=== PATIENT | male | born 1945 | race Caucasian/White ===

== ENCOUNTER 2018-01-02 07:58 | Day surgery (SDC) | payer OTHER ==
[~2018-01-02] VITALS: Ht 180.3 cm; Wt 102.1 kg
[~2018-01-02 07:58] MED LIST: ALLOPURINOL300 MG PO; ASPIRIN EC325 MG PO; ASPIRIN81 MG PO; BUPROPION XL150 MG PO; CHLORTHALIDONE25 MG PO; CLOPIDOGREL75 MG PO; COZAAR100 MG PO; FISH OIL 1,0001 EAC1 PO; MELOXICAM15 MG PO; NORCO 5-325 TA1 EACH PO; NORVASC5 MG PO; ONE-A-DAY MAXI1 EACH PO; PRAVACHOL40 MG PO; VITAMIN B-12500 MC3 PO
[2018-01-02] MEDS ORDERED: ULTRAM50 MG PO (08:24)
--- NOTE | 2018-01-02 10:19 | NUR ---
01/02/18 1019 Chandrika Lawrence 3446 PT ARRIVED IN PACU SLEEPY. OXYGEN DECREASED TO 2L VIA NC WITH SATS 98%. ABD SOFT. 1010 OXYGEN DC'D. SATS 92% ON RA. NO C/O'S.
--- NOTE | 2018-01-02 10:44 | OR ---
[facility] [address] [place], [place] [address] Signed DATE OF OPERATION: 01/02/2018 SURGEON: Robert Acevedo MD PREOPERATIVE DIAGNOSES: 1. Personal history of 83 polyps in 2015. 2. Diverticulosis. 3. Father with a history of colon cancer in his 70s. POSTOPERATIVE DIAGNOSES: 1. A 4 mm polyp polyps in proximal right colon, 90 cm and 25 cm. 2. Minimal sigmoid diverticulosis. 3. Jyqzfaz-vb-tpywvzwp internal hemorrhoids. PROCEDURE: Colonoscopy with hot biopsy. ESTIMATED BLOOD LOSS: None. INDICATIONS: Gwen is a 72-year-old gentleman, asked to see me for followup colonoscopy. He explained that his father had colon cancer diagnosed in his 70s. Gwen had his colonoscopy in 2014 and he had 83 polyps removed through the [facility] in [facility]. He is also known to have some diverticulosis. He said in the meantime, he seems to be doing fine. He has no lower GI complaints. In the office, I gave him a pamphlet on colonoscopy and we discussed the nature of the test along with the risks including, but not limited to gas bloating, crampy abdominal pain, bleeding, perforation, requiring surgery, and missed diagnosis. We also discussed the need for IV conscious sedation. He had expressed understanding and wished to proceed. PROCEDURE NOTE: Gwen was taken into our endoscopy suite and placed in the left lateral decubitus position. He was given divided doses of 7 mg of Versed and 150 mcg of fentanyl. A digital rectal exam was performed and he has some induration to the prostate as expected. The adult colonoscope was introduced and advanced all around into the cecum under direct visualization of camera without difficulty. His prep was moderate. The scope was slowly withdrawn. We took pictures throughout for photodocumentation. The above-mentioned polyps were removed with the help of hot biopsy forceps. We did also see numerous polypectomy scars from his previous colonoscopy. We saw few diverticula in Electronically Signed By: ROBERT ACEVEDO MD 01/02/18 1044 PATIENT NAME: GWEN CAMPOS OPERATIVE REPORT DATE OF : 47 REPORT #: [id number] PHYSICIAN: ROBERT ACEVEDO MD PCP: EDGAR TREVINO MD REPORT IS CONFIDENTIAL AND NOT TO BE RELEASED WITHOUT AUTHORIZATION [facility] [address] [place], [place] [address] Signed the sigmoid colon. They were relatively small in size few in number, and scattered about. The scope was then retroflexed in the rectum and he does have some toarefw-kk-yalfsvuu internal hemorrhoid tissue. After this, the gas was suctioned out and colonoscope removed. Gwen tolerated the procedure quite well. RECOMMENDATIONS: I will see Gwen back in my office in 7 to 14 days to review his results. I suspect he will stay on the 5-year colonoscopy rotation. Robert Acevedo MD ALB/URIELL /[id number] cc: MD Nigel Lainez MD Copies: ROBERT ACEVEDO MD, MICAIAH MATTHEW MD ~ Electronically Signed By: ROBERT ACEVEDO MD 01/02/18 1044 PATIENT NAME: GWEN CAMPOS OPERATIVE REPORT DATE OF : 47 REPORT #: [id number] PHYSICIAN: ROBERT ACEVEDO MD PCP: EDGAR TREVINO MD REPORT IS CONFIDENTIAL AND NOT TO BE RELEASED WITHOUT AUTHORIZATION
== END 2018-01-02 10:55 | disposition home or self-care (01) ==
LOC: DS 07:58 → OPS 07:58 → DS 09:45 → OPS 10:55
PROVIDERS: Colon & Rectal Surgery
PROC: 0DBE8ZZ Excision of Large Intestine, Via Natural or Artificial Opening Endoscopic (ICD-10-PCS; 2018-01-02)
PROC: 0DBK8ZZ Excision of Ascending Colon, Via Natural or Artificial Opening Endoscopic (ICD-10-PCS; principal; 2018-01-02 09:45)
DX: Z12.11 Encounter for screening for malignant neoplasm of colon (principal); D12.6 Benign neoplasm of colon, unspecified; D17.5 Benign lipomatous neoplasm of intra-abdominal organs; K63.5 Polyp of colon; K57.30 Diverticulosis of large intestine without perforation or abscess without bleeding; K64.8 Other hemorrhoids; I10 Essential (primary) hypertension; E78.5 Hyperlipidemia, unspecified; E55.9 Vitamin D deficiency, unspecified; M19.90 Unspecified osteoarthritis, unspecified site; M10.9 Gout, unspecified; D64.9 Anemia, unspecified; F17.210 Nicotine dependence, cigarettes, uncomplicated; Z88.5 Allergy status to narcotic agent; Z86.010 Personal history of colon polyps; Z83.71 Family history of colonic polyps; Z98.890 Other specified postprocedural states; Z88.8 Allergy status to other drugs, medicaments and biological substances; Z79.02 Long term (current) use of antithrombotics/antiplatelets; Z79.899 Other long term (current) drug therapy
CPT/HCPCS: 99153; G0500; J2250; J3010; J7120

== ENCOUNTER 2018-11-24 14:16 | Emergency (ER) | payer MEDICARE ==
[~2018-11-24] VITALS: Ht 172.7 cm; Wt 102.1 kg
--- OUTSIDE RECORDS SUMMARY | ~2018-11-24 | XMS | Encounter Summary ---
Demographics + + + | Address | [address] | | | [place] [address] | + + + | Home Phone | | + + + | Preferred Language | Unknown | + + + | Marital Status | Single | + + + | Restorationism Affiliation | ADV | + + + | Race | White | + + + | Ethnic Group | Not or | + + + Author + + + | Author | [facility] | + + + | Organization | [facility] | + + + | Address | Unknown | + + + | Phone | Unavailable | + + + Support + + +---------+ + | Name | Relationship | Address | Phone | + + +---------+ + | Cristi Soriano | ECON | Unknown | | + + +---------+ + Care Team Providers + +------+ + | Care Red Cap Name | Role | Phone | + +------+ + | Nigel Crystal MD | PCP | | + +------+ + Reason for Visit AUTH/CERT +--------+--------+ + + + + | Status | Reason | Specialty | Diagnoses / | Referred By | Referred To | | | | | Procedures | Contact | Contact | +--------+--------+ + + + + | | | | | | | +--------+--------+ + + + + Encounter Details +--------+---------+ + + + | Date | Type | Department | Care Team | Description | +--------+---------+ + + + | 02/08/ | Surgery | [facility] | Madison Hensley MD | [facility] | | 2016 | | [address] | [address] | VITRECTOMY, ENDO | | | | [address] [address] | [address] [place], [place] | LASER, 20% SF6 GAS | | | | [facility], | [address] | RIGHT *23G* | | | | [place] [address] | [phone] | | | | | | | | +--------+---------+ + + + Social History + + + +--------+------+ | Tobacco Use | Types | Packs/Day | Years | Date | | | | | Used | | + + + +--------+------+ | Current Some Day | Cigarettes | 0.5 | 50 | | | Smoker | | | | | + + + +--------+------+ + + | Comments: 1/2 a pack a week | + + + + +---------+ + | Alcohol Use | Drinks/Week | oz/Week | Comments | + + +---------+ + | Yes | 14 Cans of beer | 8.4 | 2-24 oz cans before | | | | | bed | + + +---------+ + + + + | Sex Assigned at | Date Recorded | | | | + + + | Not on file | | + + + + + + + | Job Start Date | Occupation | Industry | + + + + | Not on file | Not on file | Not on file | + + + + + + + + | Travel History | Travel Start | Travel End | + + + + + + | No recent travel history available. | + + documented as of this encounter Last Filed Vital Signs + + + + + | Vital Sign | Reading | Time Taken | Comments | + + + + + | Blood Pressure | 118/70 | 02/09/2016 5:00 PM | | | | | PDT | | + + + + + | Pulse | 56 | 02/09/2016 5:00 PM | | | | | PDT | | + + + + + | Temperature | 36.8 C (98.2 F) | 02/09/2016 4:30 PM | | | | | PDT | | + + + + + | Respiratory Rate | 14 | 02/09/2016 5:00 PM | | | | | PDT | | + + + + + | Oxygen Saturation | 100% | 02/09/2016 5:00 PM | | | | | PDT | | + + + + + | Inhaled Oxygen | - | - | | | Concentration | | | | + + + + + | Weight | 93.6 kg (206 lb 6.4 | 02/09/2016 11:41 AM | | | | oz) | PDT | | + + + + + | Height | 175.3 cm (5' 9") | 02/09/2016 11:41 AM | | | | | PDT | | + + + + + | Body Mass Index | 30.48 | 02/09/2016 11:41 AM | | | | | PDT | | + + + + + documented in this encounter Discharge Instructions Instructions Sapna Savage RN - 02/09/2016Home Care after Retinal Detachment and Vitrect albino Surgery Do not drive, drink alcoholic beverages, sign legal documents or make major decisions durin g the next 24 hours. Leave the bandage & shield on your eye, clean and dry. Your doctor andra thibodeaux remove it the day after surgery. Resume your previous diet and take your medications as u sual. Eye care ? Your eye patch will be removed in the doctor s office the day after surgery ? Keep it dry ? Please bring all recently prescribed Eye medication to the appointment ? Please do not o rub your operated eye o lift heavy objects o engage in any strenuous exercise or activity for two weeks Special positioning may be required to enhance the surgical repair of your eye. Specific in structions will be given and length of time varies with the type of repair you received. If you have a gas bubble in your eye: Do not sleep flat on your back (this causes the gas bubble to move forward and puts unwante d pressure against your lens and the front of your eye). If a gas bubble is in your eye, thi s could expand as you increase elevation resulting in pain or vision loss; should you experi ence headache, nausea or vision loss you must descend immediately. Please discuss with your physician what elevation is safe to travel to. Air travel is contraindicated with a gas bubb le in your eye and could result in permanent vision loss and blindness. POSITIONING What to expect It is normal after surgery to experience: ? Dull ache / headache ? Slight redness of the eye ? Swelling / discoloration around the eye ? Scratchy sensation ? Droopy eyelid Call your Doctor if ? You experience pain that is not relieved by prescribed medications ? You notice decreased vision How to reach your Doctor ? Call (Day or Night) ? Return appointment date: ? Time: documented in this encounter Medications at Time of Discharge + + + +---------+--------+ + | Medication | Sig | Dispensed | Refills | Start | End Date | | | | | | Date | | + + + +---------+--------+ + | allopurinol 100 mg | Take 100 mg by mouth | | 0 | | | | oral tablet | once daily. | | | | | + + + +---------+--------+ + | amLODIPine 5 mg | Take 5 mg by mouth | | 0 | | | | oral tablet | once daily. | | | | | + + + +---------+--------+ + | clopidogrel 75 mg | Take 75 mg by mouth | | 0 | | | | oral tablet | once daily. | | | | | + + + +---------+--------+ + | | Take 1 tablet by | | 0 | | | | HYDROcodone-acetamin | mouth every four | | | | | | ophen 5-325 mg oral | hours as needed. | | | | | | tablet | | | | | | + + + +---------+--------+ + | POTASSIUM ORAL | Take 100 mg by mouth | | 0 | | | | | once daily. | | | | | | | Losartan Potassium | | | | | + + + +---------+--------+ + | pravastatin 40 mg | Take 40 mg by mouth | | 0 | | | | oral tablet | once daily. | | | | | + + + +---------+--------+ + | traMADol 50 mg | Take 50 mg by mouth | | 0 | | | | oral tablet | two times daily. | | | | | + + + +---------+--------+ + documented as of this encounter Plan of Treatment Not on filedocumented as of this encounter Procedures + +--------+ + + + | Procedure Name | Priori | Date/Time | Associated Diagnosis | Comments | | | ty | | | | + +--------+ + + + | PROCEDURE NOTE | Routin | 02/13/2016 | | Results for this | | | e | 5:50 PM | | procedure are in the | | | | PDT | | results section. 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 male with macula-off | | | detachment in the right eye. He now undergoes surgery. Surgical | | | Narrative: The patient was brought into the operating theatre and was | | | placed in supine position. After sufficient sedation was given, a | | | 50:50 mix of 2% xylocaine and 0.75% bupivacaine was injected into | | | the peribulbar space using an Costello needle. The area around the | | | right eye was then prepped and draped in usual sterile manner for | | | ophthalmic surgery. A lid speculum was placed and the operating | | | microscope was brought over the eye. The eye was set up for standard | | | 23-gauge vitrectomy with the infusion trocar in the infratemporal | | | quadrant and instrument trocars in the supratemporal and supranasal | | | quadrants. The retina was detached from approximately 9 to 7 | | | o'clock, sparing the interotemporal quadrant. There was shallow | | | fluid in the macula. Using light pipe, vitrector, and the BIOM | | | viewing system, vitrectomy was performed. During vitrectomy a | | | posterior capsule defect was created with the cutter. Using the | | | vitrector on suction, posterior detachment was induced. The vitreous | | | was trimmed in all clock hours in systematic fashion. Scleral | | | depression was used to look for breaks in the periphery. A small | | | superonasal flap tear was visualized and vitreous applying traction | | | to the flap was cut as well as removal of all vitreous traction to | | | this flap tear. Vitreous shaving was performed in all quadrants. | | | No additional breaks were seen. The superotemporal peripheral retina | | | appeared atrophic. Endodiathermy was used to nandini the | | | break. Perflurocarbon was injected into the vitreous cavity to | | | flatten the retina. Schlieren was seen to emerge from the | | | break. Air-fluid exchange was performed with the extrusion | | | cannula draining through the superonasal break using the air-PFC | | | sandwich technique. The retina was flattened nearly completely | | | with minimal subretinal fluid. An endolaser probe was used to | | | perform photocoagulation around the break and other areas of | | | thinning peripherally. 7-0 Polysorb sutures were placed in the | | | sclerotomy wounds. As the eye was being closed, the air was | | | exchanged for 100 mL of 20% SF6 gas. Normal tactile intraocular | | | pressure was confirmed. Decadron and Zinacef were given as | | | subconjunctival injections. Atropine, a gauze patch, and a metal | | | shield were placed over the eye. The patient was moved to the | | | recovery area in satisfactory condition. I certify that the | | | services of which payment is claimed were medically necessary and | | | that no qualified resident was available to perform the | | | services. I further understand that these services are subject to | | | post-payment review by the Medicare carrier. Madison Hensley MD PhD | | | | | + + + documented in this encounter Visit Diagnoses + + | Diagnosis | + + | Retinal detachment, right Unspecified retinal detachment | + + documented in this encounter Administered Medications + +--------+ +--------+------+--------+ | Medication Order | MAR | Action | Dose | Rate | Site | | | Action | Date | | | | + +--------+ +--------+------+--------+ | atropine 1 % ophthalmic drops | Given | 02/09/20 | 1 drop | | Right | | INTRAPROCEDURE PRN, Starting Radha | | 16 3:07 | | | Eye | | 02/09/16 at 1507, Until Radha | | PM PDT | | | | | 02/09/16 at 1633 | | | | | | + +--------+ +--------+------+--------+ +---+---+ | | | +---+---+ + +-------+ +-------+---+--------+ | balanced salt (BSS) ophthalmic | Given | 02/09/20 | 15 mL | | Right | | irrigation INTRAPROCEDURE PRN, | | 16 3:07 | | | Eye | | Starting Radha 02/09/16 at 1507, | | PM PDT | | | | | Until Radha 02/09/16 at 1633 | | | | | | + +-------+ +-------+---+--------+ +---+---+ | | | +---+---+ + +-------+ +--------+---+--------+ | cefuroxime (ZINACEF) injection | Given | 02/09/20 | 125 mg | | Right | | INTRAPROCEDURE PRN, Starting Radha | | 16 3:07 | | | Eye | | 02/09/16 at 1507, Until Radha | | PM PDT | | | | | 02/09/16 at 1633 | | | | | | + +-------+ +--------+---+--------+ +---+---+ | | | +---+---+ + +-------+ +--------+---+---+ | cyclopentolate 1%-PHENYLEPHrine | Given | 02/09/20 | 1 drop | | | | 2.5%-tropicamide 0.25% | | 16 11:53 | | | | | (SUPERDROPS) ophthalmic drops 1 | | AM PDT | | | | | drop 1 drop, Right Eye, EVERY 5 | | | | | | | MINUTES NEEDED, 2 doses, | | | | | | | Starting Radha 02/09/16 at 1136, | | | | | | | Until Radha 02/09/16 at 2336, | | | | | | | pre-procedure dilation | | | | | | + +-------+ +--------+---+---+ +---+---+ | | | +---+---+ + +-------+ +-------+---+--------+ | dexamethasone (DECADRON) | Given | 02/09/20 | 10 mg | | Right | | injection INTRAPROCEDURE PRN, | | 16 3:08 | | | Eye | | Starting Radha 02/09/16 at 1508, | | PM PDT | | | | | Until Radha 02/09/16 at 1633 | | | | | | + +-------+ +-------+---+--------+ +---+---+ | | | +---+---+ + +-------+ + +---+--------+ | Dilating Solution: BSS Plain | Given | 02/09/20 | 1 Bottle | | Right | | 500 mL - 0.5 mL EPINEPHrine | | 16 3:08 | | | Eye | | (1:1,000) INTRAPROCEDURE PRN, | | PM PDT | | | | | Starting Radha 02/09/16 at 1508, | | | | | | | Until Radha 02/09/16 at 1633 | | | | | | + +-------+ + +---+--------+ +---+---+ | | | +---+---+ + +---------+ +---+---+---+ | lactated ringers IV 10 mL/hr, | New Bag | 02/09/20 | | | | | intravenous, CONTINUOUS, Starting | | 16 2:32 | | | | | Radha 02/09/16 at 1215, Until Radha | | PM PDT | | | | | 02/09/16 at 2336 | | | | | | + +---------+ +---+---+---+ +---------+ + + +---+ | New Bag | 02/09/20 | 10 mL/hr | 10 mL/hr | | | | 16 11:53 | | | | | | AM PDT | | | | +---------+ + + +---+ +---+---+ | | | +---+---+ + +-------+ +------+---+--------+ | Local with hyaluronidase: | Given | 02/09/20 | 6 mL | | Right | | lidocaine 2% - bupivacaine 0.75% | | 16 3:08 | | | Eye | | - hyaluronidase 150 units/mL 1 mL | | PM PDT | | | | | 1:10:10) INTRAPROCEDURE PRN, | | | | | | | Starting Radha 02/09/16 at 1508, | | | | | | | Until Radha 02/09/16 at 1633 | | | | | | + +-------+ +------+---+--------+ +---+---+ | | | +---+---+ + +-------+ +--------+---+--------+ | proparacaine (OPHTHAINE) 0.5 % | Given | 02/09/20 | 1 drop | | Right | | ophthalmic drops INTRAPROCEDURE | | 16 3:09 | | | Eye | | PRN, Starting Radha 02/09/16 at | | PM PDT | | | | | 1509, Until Radha 02/09/16 at 1633 | | | | | | + +-------+ +--------+---+--------+ +---+---+ | | | +---+---+ + +-------+ +---------+---+--------+ | tetracaine 0.5 % ophthalmic | Given | 02/09/20 | 2 drops | | Right | | drops INTRAPROCEDURE PRN, | | 16 3:09 | | | Eye | | Starting Radha 02/09/16 at 1509, | | PM PDT | | | | | Until Radha 02/09/16 at 1633 | | | | | | + +-------+ +---------+---+--------+ +---+---+ | | | +---+---+ documented in this encounter
--- OUTSIDE RECORDS SUMMARY | ~2018-11-24 | XMS | Clinical Summary ---
Demographics + + + | Address | [address] | | | [place] [address] | + + + | Home Phone | | + + + | Preferred Language | Unknown | + + + | Marital Status | Single | + + + | Gnosticism Affiliation | ADV | + + + | Race | White | + + + | Ethnic Group | Not or | + + + Author + + + | Author | [facility] | + + + | Organization | [facility] | + + + | Address | Unknown | + + + | Phone | Unavailable | + + + Support + + +---------+ + | Name | Relationship | Address | Phone | + + +---------+ + | Cristi Soriano | ECON | Unknown | | + + +---------+ + Care Team Providers + +------+ + | Care Tattoo Designer Name | Role | Phone | + +------+ + PP | Unavailable | + +------+ + Source Comments [facility] is fully live on both [facility] and [facility] InPatient[facility] Allergies No Known Allergies Medications + + + +---------+------+------+-------+ | Medication | Sig | Dispensed | Refills | Star | End | Statu | | | | | | t | Date | s | | | | | | Date | | | + + + +---------+------+------+-------+ | pravastatin 40 mg | Take 40 mg by mouth | | 0 | | | Activ | | oral tablet | once daily. | | | | | e | + + + +---------+------+------+-------+ | amLODIPine 5 mg | Take 5 mg by mouth | | 0 | | | Activ | | oral tablet | once daily. | | | | | e | + + + +---------+------+------+-------+ | traMADol 50 mg | Take 50 mg by mouth | | 0 | | | Activ | | oral tablet | two times daily. | | | | | e | + + + +---------+------+------+-------+ | allopurinol 100 mg | Take 100 mg by mouth | | 0 | | | Activ | | oral tablet | once daily. | | | | | e | + + + +---------+------+------+-------+ | clopidogrel 75 mg | Take 75 mg by mouth | | 0 | | | Activ | | oral tablet | once daily. | | | | | e | + + + +---------+------+------+-------+ | POTASSIUM ORAL | Take 100 mg by mouth | | 0 | | | Activ | | | once daily. | | | | | e | | | Losartan Potassium | | | | | | + + + +---------+------+------+-------+ | | Take 1 tablet by | | 0 | | | Activ | | HYDROcodone-acetamin | mouth every four | | | | | e | | ophen 5-325 mg oral | hours as needed. | | | | | | | tablet | | | | | | | + + + +---------+------+------+-------+ | prednisoLONE | Instill 1 drop into | | 0 | | | Activ | | acetate 1 % | the right eye four | | | | | e | | ophthalmic | times daily. | | | | | | | drops,suspension | | | | | | | + + + +---------+------+------+-------+ | atropine 1 % | Instill 1 drop into | | 0 | | | Activ | | ophthalmic drops | the right eye two | | | | | e | | | times daily. | | | | | | + + + +---------+------+------+-------+ | | Take 1 tablet by | 10 | 0 | 08/ | | Activ | | HYDROcodone-acetamin | mouth every four | tablet | | 01/01 | | e | | ophen (VICODIN) | hours as needed. | | | 16 | | | | 5-300 mg oral tablet | | | | | | | + + + +---------+------+------+-------+ Active Problems + + + | Problem | Noted Date | + + + | Retinal detachment, rhegmatogenous, right eye | 03/09/2016 | + + + Family History + + +------+ + | Medical History | Relation | Name | Comments | + + +------+ + | Additional Family | Father | | Colon cancer | | History | | | | + + +------+ + | Glasses | Father | | | + + +------+ + | Glasses | Mother | | | + + +------+ + | Strabismus | Mother | | | + + +------+ + | Amblyopia | Neg Hx | | | + + +------+ + | Blindness | Neg Hx | | | + + +------+ + | Cataracts | Neg Hx | | | + + +------+ + | Diabetes | Neg Hx | | | + + +------+ + | Glaucoma | Neg Hx | | | + + +------+ + | Macular degeneration | Neg Hx | | | + + +------+ + | Retinal detachment | Neg Hx | | | + + +------+ + + +------+--------+ + | Relation | Name | Status | Comments | + +------+--------+ + | Father | | | | + +------+--------+ + | Mother | | | | + +------+--------+ + Social History + + + +--------+------+ | Tobacco Use | Types | Packs/Day | Years | Date | | | | | Used | | + + + +--------+------+ | Current Some Day | Cigarettes | 0.5 | 50 | | | Smoker | | | | | + + + +--------+------+ + + | Tobacco Cessation: Ready to Quit: Yes | | Comments: 1/2 a pack a week [...] recent travel history available. | + + Last Filed Vital Signs + + + [...] | | + + + + + Plan of Treatment + + + + + | Health Maintenance | Due Date | Last Done | Comments | + + + + + | Pneumococcal (Adult) | | | | | (1 of 2 - PCV13) | 1 | | | + + + + + | Influenza (Flu) | | | | | vaccination (Season | 9 | | | | Ended) | | | | + + + + + Results Not on filefrom Last 3 Months Insurance + +--------+ +--------+ + +--------+ | Payer | Benefi | Subscriber | Effect | Phone | Address | Type | | | t Plan | ID | jeff | | | | | | / | | Dates | | | | | | Group | | | | | | + +--------+ +--------+ + +--------+ | MEDICARE | MEDICA | xxxxxxxxxx | | [phone] | [address] | [address] | | | RE A & | | [phone] | | | [address] | | esent | | [place] | | | | | | | | [phone] | | + +--------+ +--------+ + +--------+ + +--------+ +--------+ + + | Guarantor Name | Accoun | Relation to | Date | Phone | Billing Address | | | t Type | Patient | of | | | | | | | | | | + +--------+ +--------+ + + | Vickey Dunn | Person | Self [birth year] | [address] | | | al/Fam | | 1945 | [phone] | [place] [address] | | | yannick | | | 9 (Home) | | + +--------+ +--------+ + + | Vickey Dunn | ALL | Self | [birth year] | [address] | | | [place] | | 1945 | [phone] | [place] [address] | | | red | | | 9 (Home) | | + +--------+ +--------+ + +
--- OUTSIDE RECORDS SUMMARY | ~2018-11-24 | XMS | Encounter Summary ---
Demographics + + + | Address | [address] | | | [place] [address] | + + + | Home Phone | | + + + | Preferred Language | Unknown | + + + | Marital Status | Single | + + + | Baptist Affiliation | ADV | + + + | Race | White | + + + | Ethnic Group | Not or | + + + Author + + + | Author | [facility] | + + + | Organization | [facility] | + + + | Address | Unknown | + + + | Phone | Unavailable | + + + Support + + +---------+ + | Name | Relationship | Address | Phone | + + +---------+ + | rCisti Soriano | ECON | Unknown | | + + +---------+ + Care Team Providers + +------+ + | Care Railroad Watchman Name | Role | Phone | + +------+ + | Nigel Crystal MD | PCP | | + +------+ + Encounter Details +--------+ + + + + | Date | Type | Department | Care Team | Description | +--------+ + + + + | 02/08/ | Hospital | Registration HOV | | | | 2016 | Encounter | [address] | | | | | | [place] | | | | | | [place], [place] | | | | | | [address] | | | +--------+ + + + + Social History + + [...] + + documented as of this encounter Medications at Time of Discharge [...] Not on filedocumented as of this encounter Visit Diagnoses Not on filedocumented in this encounter"
--- OUTSIDE RECORDS SUMMARY | ~2018-11-24 | XMS | Encounter Summary ---
Demographics + + + | Address | [address] | | | [place] [address] | + + + | Home Phone | | + + + | Preferred Language | Unknown | + + + | Marital Status | Single | + + + | Confucianist Affiliation | ADV | + + + | Race | White | + + + | Ethnic Group | Not or | + + + Author + + + | Author | [facility] | + + + | Organization | [facility] | + + + | Address | Unknown | + + + | Phone | Unavailable | + + + Support + + +---------+ + | Name | Relationship | Address | Phone | + + +---------+ + | Cristi Soriano | ECON | Unknown | | + + +---------+ + Care Team Providers + +------+ + | Care Heel Emery Buffer Name | Role | Phone | + +------+ + | Nigel Crystal MD | PCP | | + +------+ + Reason for Visit + + + | Reason | Comments | + + + | Care Questions | | + + + Encounter Details +--------+ + + + + | Date | Type | Department | Care Team | Description | +--------+ + + + + | 02/16/ | Telephone | [facility] | Frederic Bermudez MD | Care Questions | | 2015 | | [facility] | [address] | | | | | [facility] [address] | [place], [place] | | | | | [address] | [address] | | | | | Mailcode: [place] | [phone] | | | | | [place], [place] | | | | | | [address] | | | | | | [phone] | | | +--------+ + + + [...] + + documented as of this encounter Plan of Treatment Not on filedocumented as of this encounter Visit Diagnoses Not on filedocumented in this encounter"
--- OUTSIDE RECORDS SUMMARY | ~2018-11-24 | XMS | Encounter Summary ---
Demographics + + + | Address | [address] | | | [place] [address] | + + + | Home Phone | | + + + | Preferred Language | Unknown | + + + | Marital Status | Single | + + + | Yarsani Affiliation | ADV | + + + | Race | White | + + + | Ethnic Group | Not or | + + + Author + + + | Author | [facility] | + + + | Organization | [facility] | + + + | Address | Unknown | + + + | Phone | Unavailable | + + + Support + + +---------+ + | Name | Relationship | Address | Phone | + + +---------+ + | Cristi Soriano | ECON | Unknown | | + + +---------+ + Care Team Providers + +------+ + | Care Uniform Room Attendant Name | Role | Phone | + [...] +--------+--------+ + + + + Encounter Details +--------+ + + + + | Date | Type | Department | Care Team | Description | +--------+ + + + + | 02/08/ | Anesthesia | [facility] | Guy Pacheco MD | | | 2016 | Event | [address] | [address] | | | | | [facility] | [place], | | | | | [facility], | [place] [address] | | | | | [place] [address] | [phone] | | | | | | | | +--------+ + + + + Anesthesia Record + + + + + | Procedure Name | Responsible | Anesthesia Start | Anesthesia Stop Time | | | Anesthesiologist | Time | | + + + + + | 23G VITRECTOMY GROUP | Guy Pacheco MD | 02/09/16 1438 | 02/09/16 1632 | | (Right Eye) | | | | + + + + + +----+---+ + + | Da | T | Event | Comment | | te | i | | | | | m | | | | | e | | | +----+---+ + + | 07 | 1 | | | | /2 | 2 | | | | 8/ | 2 | | | | 20 | 9 | | | | 16 | | | | +----+---+ + + | | 1 | Eq Check | Anesthesia machine checked Equipment verified | | | 4 | | | | | 3 | | | | | 4 | | | +----+---+ + + | | 1 | Pt. Check | Prior to anesthesia start, pt. Identified, examined, chart | | | 4 | | reviewed, PARQ held, anesthetic plan made or approved by | | | 3 | | attending anesthesiologist. NPO status confirmed as appropriate | | | 4 | | for procedure Preoperative evaluation: unchanged | +----+---+ + + | | 1 | An Start | | | | 4 | | | | | 3 | | | | | 8 | | | +----+---+ + + | | 1 | An Start | | | | 4 | Data | | | | 4 | | | | | 0 | | | +----+---+ + + | | 1 | O2 by NC | | | | 4 | | | | | 4 | | | | | 2 | | | +----+---+ + + | | 1 | Quick [facility] | a) Monitors Placed b) Arms <90 degrees c) Warm Blankets placed | | | 4 | | Upper and Lower Body d) Bed Turned 90 Degrees | | | 4 | | | | | 2 | | | +----+---+ + + | | 1 | Vitals | Monitors applied Vital signs checked Patient ready for anesthesia | | | 4 | Checked | | | | 4 | | | | | 6 | | | +----+---+ + + | | 1 | Ready | | | | 4 | | | | | 4 | | | | | 7 | | | +----+---+ + + | | 1 | Retrobulbar | | | | 4 | Block by | | | | 4 | Surgeon | | | | 8 | | | +----+---+ + + | | 1 | Abx held | Contraindicated, or not indicated for this procedure, or already | | | 4 | Medical or | receiving antibiotics | | | 5 | Surgical | | | | 8 | Reason | | +----+---+ + + | | 1 | Incision | | | | 5 | | | | | 0 | | | | | 1 | | | +----+---+ + + | | 1 | Surgery end | | | | 6 | | | | | 2 | | | | | 4 | | | +----+---+ + + | | 1 | Post-Op | | | | 6 | Page | | | | 3 | | | | | 0 | | | +----+---+ + + | | 1 | Anesthesia | | | | 6 | End | | | | 3 | | | | | 2 | | | +----+---+ + + +------+ | Meds | +------+ + + + | Name | Total | + + + | midazolam | 2 mg | + + + | alfentanil | 1,000 mcg | + + + | propofol | 50 mg | + + + | acetaZOLAMIDE (DIAMOX) IV | 500 mg | | (PEDIATRIC) 100 mg/mL | | + + + | lactated ringers IV | 0 mL | + + + + + | Name | + + | O2 Flow Rate (Total Liters) | + + + + | No blood administrations on file. | + + +--------+ + + + | Type | Details | Placement | Removal | +--------+ + + + | Periph | 02/09/16; 1152; Right; | 02/09/16 1152 by | 02/09/16 1736 by | | eral | Antecubital; 22 g; None; No; | Sapna Savage RN | Destiny Deluca RN | | IV | Positive; 02/09/16; 1736 | | | +--------+ + + + | Incisi | 02/09/16; 1633; Right; eye; | 02/09/16 1633 by | 02/09/16 1733 by | | on | 02/09/16; 1733 | Destiny Deluca RN | Destiny Deluca RN | +--------+ + + + documented in this encounter Social History + + + +--------+------+ | [...] Visit Diagnoses Not on filedocumented in this encounter Administered Medications + +--------+ +--------+------+------+ | Medication Order | MAR | Action | Dose | Rate | Site | | | Action | Date | | | | + +--------+ +--------+------+------+ | acetaZOLAMIDE (DIAMOX) IV | Given | 02/09/20 | 500 mg | | | | INTRAPROCEDURE PRN, Starting Radha | | 16 4:27 | | | | | 02/09/16 at 1627, Until Radha | | PM PDT | | | | | 02/09/16 at 1632 | | | | | | + +--------+ +--------+------+------+ +---+---+ | | | +---+---+ + +-------+ +--------+---+---+ | alfentanil (ALFENTA) injection | Given | 02/09/20 | 1,000 | | | | INTRAPROCEDURE PRN, Starting Radha | | 16 2:47 | mcg | | | | 02/09/16 at 1447, Until Radha | | PM PDT | | | | | 02/09/16 at 1632 | | | | | | + +-------+ +--------+---+---+ +---+---+ | | | +---+---+ + +---------+ [...] +---+---+ | | | +---+---+ + +-------+ +------+---+---+ | midazolam (VERSED) injection | Given | 02/09/20 | 2 mg | | | | INTRAPROCEDURE PRN, Starting Radha | | 16 2:38 | | | | | 02/09/16 at 1438, Until Radha | | PM PDT | | | | | 02/09/16 at 1632 | | | | | | + +-------+ +------+---+---+ +---+---+ | | | +---+---+ + +-------+ +-------+---+---+ | propofol INTRAPROCEDURE PRN, | Given | 02/09/20 | 50 mg | | | | Starting Radha 02/09/16 at 1447, | | 16 2:47 | | | | | Until Radha 02/09/16 at 1632 | | PM PDT | | | | + +-------+ +-------+---+---+ +---+---+ | | | +---+---+ documented in this encounter"
--- OUTSIDE RECORDS SUMMARY | ~2018-11-24 | XMS | Clinical Summary ---
Demographics + + + | Address | [address] | | | [place] [address] | + + + | Home Phone | | + + + | Preferred Language | Unknown | + + + | Marital Status | | + + + | Buddhism Affiliation | Unknown | + + + | Race | Unknown | + + + | Ethnic Group | Unknown | + + + Author + + + | Author | [facility] | | | and [place] | + + + | Organization | [facility] | | | and [place] | + + + | Address | Unknown | + + + | Phone | Unavailable | + + + Care Team Providers + +------+ + | Care Manager Winter Name | Role | Phone | + +------+ + | Nigel Crystal MD | PP | | + +------+ + Allergies + + + + + + | Active Allergy | Reactions | Severity | Noted | Comments | | | | | Date | | + + + + + + | Lisinopril | | | 01/31/20 | | | | | | 18 | | + + + + + + | Oxycodone | | | 01/31/20 | | | | | | 18 | | + + + + + + Medications No known medications Active Problems + + + | Problem | Noted Date | + + + | Peripheral polyneuropathy | 01/30/2018 | + + + Social History + +-------+ +--------+------+ | Tobacco Use | Types | Packs/Day | Years | Date | | | | | Used | | + +-------+ +--------+------+ | Current Every Day | | 0.25 | | | | Smoker | | | | | + +-------+ +--------+------+ + +---+---+---+ | Smokeless Tobacco: | | | | | Never Used | | | | + +---+---+---+ + + | Tobacco Cessation: Ready to Quit: Yes | | Comments: Starting to quit | + + + + +---------+ + | Alcohol Use | Drinks/We | oz/Week | Comments | | | ek | | | + + +---------+ + | Yes | | | | + + +---------+ + + + [...] Filed Vital Signs + + + + | Vital Sign | Reading | Time Taken | + + + + | Blood Pressure | 119/76 | 01/29/2018921 PDT | + + + + | Pulse | 72 | 01/29/2018921 PDT | + + + + | Temperature | - | - | + + + + | Respiratory Rate | - | - | + + + + | Oxygen Saturation | - | - | + + + + | Inhaled Oxygen | - | - | | Concentration | | | + + + + | Weight | 99.8 kg (220 lb) | 01/29/2018921 PDT | + + + + | Height | 174 cm (5' 8.5") | 01/29/2018921 PDT | + + + + | Body Mass Index | 32.96 | 01/29/2018921 PDT | + + + + Plan of Treatment + + + + + | Health Maintenance | Due Date | Last Done | Comments | + + + + + | Hepatitis C | | | | | Screening | 6 | | | + + + + + | Vaccine: | | | | | Dtap/Tdap/Td (1 - | 5 | | | | Tdap) | | | | + + + + + | Colorectal Cancer | | | | | Screening | 6 | | | | (Colonoscopy) | | | | + + + + + | Vaccine: Zoster (1 | | | | | of 2) | 6 | | | + + + + + | AAA Screening | | | | | | 1 | | | + + + + + | Vaccine: | | | | | Pneumococcal 65+ | 1 | | | | Low/Medium Risk (1 | | | | | of 2 - PCV13) | | | | + + + + + | Adult Annual | | | | | Wellness Visit | 8 | | | + + + + + | Vaccine: Influenza | | | | | (Season Ended) | 9 | | | + + + + + Results Not on filefrom Last 3 Months Insurance + +--------+ +--------+-------+---------+--------+ | Payer | Benefi | Subscriber | Effect | Phone | Address | Type | | | t Plan | ID | jeff | | | | | | / | | Dates | | | | | | Group | | | | | | + +--------+ +--------+-------+---------+--------+ | [employer] | [employer] | [id number] | 10/17/19 | | | Indemn | | | NS | | 18-Pre | | | ity | | | CHOICE | | sent | | | | + +--------+ +--------+-------+---------+--------+ + +--------+ +--------+ + + | Guarantor Name | Accoun | Relation to | Date | Phone | Billing Address | | | t Type | Patient | of | | | | | | | | | | + +--------+ +--------+ + + | Vickey Dunn | Person | Self [birth year] | [address] | | | al/Fam | | 1945 | [phone] | [address] [place] | | | yannick | | | [address] (Home) | [phone] | + +--------+ +--------+ + + Advance Directives Patient has advance care planning documents on file. For more information, please contact:[facility] [place] [address]
--- OUTSIDE RECORDS SUMMARY | ~2018-11-24 | XMS | Encounter Summary ---
Demographics + + + | Address | [address] | | | [place] [address] | + + + | Home Phone | | + + + | Preferred Language | Unknown | + + + | Marital Status | Single | + + + | Islam Affiliation | ADV | + + + | Race | White | + + + | Ethnic Group | Not or | + + + Author + + + | Author | [facility] | + + + | Organization | [facility] | + + + | Address | Unknown | + + + | Phone | Unavailable | + + + Support + + +---------+ + | Name | Relationship | Address | Phone | + + +---------+ + | Cristi Soriano | ECON | Unknown | | + + +---------+ + Care Team Providers + +------+ + | Care Cleaner Wall Name | Role | Phone | + +------+ + | Nigel Crystal MD | PCP | | + +------+ + Reason for Visit + + + | Reason | Comments | + + + | OCT - Macula | OD | + + + Encounter Details +--------+ + + + + | Date | Type | Department | Care Team | Description | +--------+ + + + + | 03/09/ | Diagnostic | [facility] | | OCT - Macula (OD) | | 2015 | Visit | [place] | | | | | | Photography at | | | | | | [facility] | | | | | | [address] | | | | | | Mailcode: [facility] | | | | | | [place], [place] | | | | | | [address] | | | | | | [phone] | | | +--------+ + + + [...] + + documented as of this encounter Progress Qi Upton - 03/12/2016 12:56 PM PDTThe interpretation for the following study: OCT - Macula - OD can be found on physician encounter on 03/09/2016. documented in this encounter Plan of Treatment Not on filedocumented as of this encounter Visit Diagnoses + + | Diagnosis | + + | Retinal detachment, rhegmatogenous, right eye Retinal detachment with retinal defect, | | unspecified | + + documented in this encounter"
--- OUTSIDE RECORDS SUMMARY | ~2018-11-24 | XMS | Encounter Summary ---
Demographics + + + | Address | [address] | | | [place] [address] | + + + | Home Phone | | + + + | Preferred Language | Unknown | + + + | Marital Status | Single | + + + | Jew Affiliation | ADV | + + + | Race | White | + + + | Ethnic Group | Not or | + + + Author + + + | Author | [facility] | + + + | Organization | [facility] | + + + | Address | Unknown | + + + | Phone | Unavailable | + + + Support + + +---------+ + | Name | Relationship | Address | Phone | + + +---------+ + | Cristi Soriano | ECON | Unknown | | + + +---------+ + Care Team Providers + +------+ + | Care Blade Groover Name | Role | Phone | + +------+ + | Nigel Crystal MD | PCP | | + +------+ + Reason for Visit + + + | Reason | Comments | + + + | Appointment | | | Cancelled By Patient | | + + + Encounter Details +--------+ + + + + | Date | Type | Department | Care Team | Description | +--------+ + + + + | 04/19/ | Telephone | [facility] | Madison Hensley MD | Appointment | | 2016 | | [facility] at | [address] | Cancelled By Patient | | | | [facility] [address] | [place], [place] | | | | | [address] | [address] | | | | | Mailcode: [place] | [phone] | | | | | [facility] [place] | | | | | | [address] | | | | | | [phone] | | | +--------+ + + + [...]
--- OUTSIDE RECORDS SUMMARY | ~2018-11-24 | XMS | Encounter Summary ---
Demographics + + + | Address | [address] | | | [place] [address] | + + + | Home Phone | | + + + | Preferred Language | Unknown | + + + | Marital Status | Single | + + + | Caodaism Affiliation | ADV | + + + | Race | White | + + + | Ethnic Group | Not or | + + + Author + + + | Author | [facility] | + + + | Organization | [facility] | + + + | Address | Unknown | + + + | Phone | Unavailable | + + + Support + + +---------+ + | Name | Relationship | Address | Phone | + + +---------+ + | Cristi Soriano | ECON | Unknown | | + + +---------+ + Care Team Providers + +------+ + | Care Boring And Filling Machine Operator Name | Role | Phone | + +------+ + | Nigel Crystal MD | PCP | | + +------+ + Reason for Visit + + + | Reason | Comments | + + + | Post Op Eye Surgery, | | | One Day | | + + + Encounter Details +--------+---------+ + + + | Date | Type | Department | Care Team | Description | +--------+---------+ + + + | 02/09/ | Office | [facility] | Madison Tipton MD | Postoperative eye | | 2016 | Visit | [facility] at | [address] | state (Primary Dx); | | | | [facility] [place] [address] [place], [place] | Retinal detachment, | | | | [address] | [address] | rhegmatogenous, | | | | Mailcode: [facility] | [phone] | right eye | | | | [place], [place] | | | | | | [address] | | | | | | [phone] | | | +--------+---------+ + + + [...] + documented as of this encounter Progress Notes Yee Acosta - 02/10/2016 9:00 AM PDT [facility] Progress Note 02/10/2016 CC: Post Op Eye Surgery, One Day Initial History: Patient states he is doing well with minor pain last night OD, that was relieved with medic ation. Last 3 ambulatory procedures on record: HPI: Vickey Dunn is a 70 y.o. male Last visit: Following up per recommendation: POD1 s/p PPV, endolaser, PFC, 20% SF6 for macula off detac hment OD. Did well overnight. He states he slept face down. Pain:Minimal pain (1-2 of 0-10) POH: Torn retina 1978 OS- reattached PCIOL OU 10/2015 PPV/Endo/20%SF6-OD 02/09/2016 Current Outpatient Prescriptions (Ophthalmic Medications) Medication Sig atropine Instill 1 drop into the right eye two times daily. ofloxacin Instill 1 drop into the right eye four times daily. prednisoLONE acetate Instill 1 drop into the right eye four times daily. Current Outpatient Prescriptions (Other) Medication Sig allopurinol Take 100 mg by mouth once daily. amLODIPine Take 5 mg by mouth once daily. clopidogrel Take 75 mg by mouth once daily. HYDROcodone-acetaminophen Take 1 tablet by mouth every four hours as needed. POTASSIUM ORAL Take 100 mg by mouth once daily. Losartan Potassium pravastatin Take 40 mg by mouth once daily. traMADol Take 50 mg by mouth two times daily. Past Medical History Diagnosis Date Hypertension Diabetes mellitus, type 2 (HCC) 2011 Hx of borderline diabetes. Lost weight x 8 months ago. States he is "No longer diabetic ." Hyperlipidemia Gout Retinal detachment Cataract Past Surgical History Procedure Laterality Date Vitrectomy, right eye Retinal detachment repair, right eye Social History Substance Use Topics Smoking status: Current Some Day Smoker -- 0.50 packs/day for 49 years Types: Cigarettes Smokeless tobacco: Not on file Comment: 1/2 a pack a week Alcohol Use: 8.4 oz/week 14 Cans of beer per week Comment: 2-24 oz cans before bed See Ophthalmology Module for Examination Diagnostics Ordered Right Left OCT --- --- FA --- --- FUNDUS --- --- Others IMPRESSION: 70 y.o. male with POD1 s/p PPV, endolaser, PFC, 20% SF6 for macula off detachment OD (likely macula-off for 1 day per history) - doing well, IOP good, retina attached PLAN: Ofloxacin qid; Pred Acetate qid; Atropine bid to operative eye only Shield at night; no lifting > 20 lbs; moderate to low activity Upright during the day, sleep on either side at night Altitude restrictions (no travel above 2000 ft either by car or airplane) Call for decreased vision, increased distortion, increased pain, new floaters or flashing l ights Follow up: 1 week NEXT VISIT: DILATE OD Pt states he has no one to bring him to next appt and he doesn't drive-- will see what arra ngements can be made Frederic Chavira MD PhD Attestations: The dispensary technician, under the supervision of the physician, is responsible for performing the f ollowing sections: RFV, ROS, PMH, PSH, SocHx, FH, Med list, Base Ophth Exam. The attending physician is responsible for the entire content of the note and has personall y performed the HPI and the physical examination MADISON TIPTON MD documented in this encounter Plan of Treatment Not on filedocumented as of this encounter Visit Diagnoses + + | Diagnosis | + + | Postoperative eye state - Primary Other states following surgery of eye and adnexa | + + | Retinal detachment, rhegmatogenous, right eye Retinal detachment with retinal defect, | | unspecified | + + documented in this encounter
--- OUTSIDE RECORDS SUMMARY | ~2018-11-24 | XMS | Encounter Summary ---
Demographics + + + | Address | [address] | | | [place] [address] | + + + | Home Phone | | + + + | Preferred Language | Unknown | + + + | Marital Status | Single | + + + | Christianity Affiliation | ADV | + + + | Race | White | + + + | Ethnic Group | Not or | + + + Author + + + | Author | [facility] | + + + | Organization | [facility] | + + + | Address | Unknown | + + + | Phone | Unavailable | + + + Support + + +---------+ + | Name | Relationship | Address | Phone | + + +---------+ + | Cristi Soriano | ECON | Unknown | | + + +---------+ + Care Team Providers + +------+ + | Care Surgery Scheduling Coordinator Name | Role | Phone | + +------+ + | Nigel Crystal MD | PCP | | + +------+ + Reason for Visit +---------+ + | Reason | Comments | +---------+ + | Post Op | | +---------+ + Office Visit - E/M Services (Routine) +--------+--------+ + + + + | Status | Reason | Specialty | Diagnoses / | Referred By | Referred To | | | | | Procedures | Contact | Contact | +--------+--------+ + + + + | Closed | | Ophthalmology | | Non-[facility] | Shellie, | | | | | | Epic Dept | MD Madison | | | | | | | [address] | [address] | | | | | | | [place], [place] | | | | | | | [address] | | | | | | | Phone: | | | | | | | [phone] | | | | | | | Fax: | | | | | | | [phone] | +--------+--------+ + + + + Encounter Details +--------+---------+ + + + | Date | Type | Department | Care Team | Description | +--------+---------+ + + + | 03/09/ | Office | [facility] | Madison Tipton MD | Retinal detachment, | | 2016 | Visit | [facility] | [address] | rhegmatogenous, | | | | [facility] [address] [facility] [place] | right eye (Primary | | | | [address] | [address] | Dx) | | | | Mailcode: NATALIA | [phone] | | | | | [place], [place] | | | | | | [address] | | | | | | [phone] | | | +--------+---------+ + + + [...] documented as of this encounter Progress Notes Russell Ann - 03/09/2016 2:00 PM PDTFormatting of this note might be different from santosh diaz. [facility] Progress Note 03/09/2016 CC: Post Op Initial History: Patient has been taking 1 HYDROcodone-acetaminophen 5-325 mg oral tablet for right eye pain rating 6 out of 10. After taking it pain rating goes down to 1. Vision in the right eye is distorted and smaller than vision in the left eye. Gas bubble i s gone in the right eye. Last 3 ambulatory procedures on record: HPI: Vickey Dunn is a 70 y.o. male POW4 s/p s/p PPV, endolaser, PFC, 20% SF6 for macu la off detachment OD (likely macula-off for 1 day per history) Lives in [facility], followed at [facility]. Using Pred-Forte 1% QID OD, not using other drops Last visit: Following up per recommendation with no new issues, including eye pain, decreased vision, i ncreased floaters or increased distortion Pain:Patient had pain 6 of 10. This was relieved with pain medications. POH: Torn retina 1978 OS- reattached PCIOL OU 10/2015 PPV/Endo/20%SF6-OD 02/09/2016 Current Outpatient Prescriptions (Ophthalmic Medications) Medication Sig atropine Instill 1 drop into the right eye two times daily. prednisoLONE acetate Instill 1 drop [...] for Examination Diagnostics Ordered Right Left OCT CMT: 296, Irregularity of inner retinal contour. Focal disruptions of subfoveal ellip soid layer, first test. FA FUNDUS Others IMPRESSION: 70 y.o. male POM#1 s/p PPV, endolaser, PFC, 20% SF6 for macula off detachment OD 02/09/16 (likely macula- off for 1 day per history) - doing well, IOP good, retina attached. Mild ac cell PLAN: Taper Pred-Forte 1% over next 3 weeks Call for decreased vision, increased distortion, increased pain, new floaters or flashing l ights Follow up: 2 months NEXT VISIT: DILATE OU, OCT OU Attestations: The geothermal field technician, under the supervision of the physician, is responsible for performing the f ollowing sections: RFV, ROS, PMH, PSH, SocHx, FH, Med list, Base Ophth Exam. The attending physician is responsible for the entire content of the note and has personall y performed the HPI and the physical examination MADISON TIPTON MD documented in this encounter Plan of Treatment + + +--------+ + + | Name | Type | Priori | Associated Diagnoses | Order Schedule | | | | ty | | | + + +--------+ + + | CMPTR OPHTH DX IMG | Procedures | Routin | Retinal | Expected: | | POST SEGMT | | e | detachment, | 03/08/2016, Expires: | | | | | rhegmatogenous, | 09/08/2017 | | | | | right eye | | + + +--------+ + + documented as of this encounter Visit Diagnoses + + | Diagnosis | + + | Retinal detachment, rhegmatogenous, right eye - Primary Retinal detachment with | | retinal defect, unspecified | + + documented in this encounter
--- OUTSIDE RECORDS SUMMARY | ~2018-11-24 | XMS | Encounter Summary ---
Demographics + + + | Address | [address] | | | [place] [address] | + + + | Home Phone | | + + + | Preferred Language | Unknown | + + + | Marital Status | Single | + + + | Moravian Affiliation | ADV | + + + | Race | White | + + + | Ethnic Group | Not or | + + + Author + + + | Author | [facility] | + + + | Organization | [facility] | + + + | Address | Unknown | + + + | Phone | Unavailable | + + + Support + + +---------+ + | Name | Relationship | Address | Phone | + + +---------+ + | Cristi Soriano | ECON | Unknown | | + + +---------+ + Care Team Providers + +------+ + | Care Siebel Administrator Name | Role | Phone | + [...] | +--------+ + + + + | 02/26/ | Telephone | [facility] | Frederic Bermudez MD | Care Questions | | 2015 | | [facility] at | [address] | | | | | [facility] [address] | [place], [place] | | | | | [address] | [address] | | | | | Mailcode: NATALIA | [phone] | | | | | [place], [place] | | | | | | [address] | | | | | | [phone] | | | +--------+ + + + [...]
--- OUTSIDE RECORDS SUMMARY | ~2018-11-24 | XMS | Encounter Summary ---
Demographics + + + | Address | [address] | | | [place] [address] | + + + | Home Phone | | + + + | Preferred Language | Unknown | + + + | Marital Status | Single | + + + | Yazdanism Affiliation | ADV | + + + [...] Team Providers + +------+ + | Care Carrier Washer Name | Role | Phone | + [...] + + | 02/08/ | Hospital | [facility] | Madison Hensley MD | | | 2016 | Encounter | [address]AY [address] | | | | [address] [place], [place] | | | | | [facility] | [address] | | | | | [address] | [phone] | | | | | [place] [address] | | | | | | [phone] | | | +--------+ + + + [...] + documented in this encounter Discharge Instructions Sapna Cantu RN - 02/09/2016Home Care after Retinal Detachment [...] Madison Hensley MD PhD | | | Marketing Senior Recruiter: Frederic Chavira MD PhD Anesthesia: General with [...] + documented in this encounter Visit Diagnoses Not on filedocumented in this encounter Administered Medications + +--------+ +--------+------+------+ | Medication Order | MAR | Action | Dose | Rate | Site | | | Action | Date | | | | + +--------+ +--------+------+------+ | cyclopentolate 1%-PHENYLEPHrine | Given | 02/09/20 [...] | | | | | | Until Sat02/09/16 at 2336, | | | | | | | pre-procedure dilation | | | | | | + +--------+ +--------+------+------+ +---+---+ | | | +---+---+ + +---------+ [...] + +---+ +---+---+ | | | +---+---+ documented in this encounter
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
[~2018-11-24 14:16] MED LIST changes: +ULTRAM50 MG PO
[2018-11-24] MEDS ORDERED: KEFLEX500 MG PO (16:43)
== END 2018-11-24 17:01 | disposition home or self-care (01) ==
LOC: ED 14:16
DX: L03.116 Cellulitis of left lower limb (principal); I73.9 Peripheral vascular disease, unspecified; I10 Essential (primary) hypertension; J44.9 Chronic obstructive pulmonary disease, unspecified; F17.200 Nicotine dependence, unspecified, uncomplicated; Z88.5 Allergy status to narcotic agent; Z88.8 Allergy status to other drugs, medicaments and biological substances; Z79.899 Other long term (current) drug therapy
CPT/HCPCS: 80053; 85025; 93971; 99284-25

== ENCOUNTER 2021-10-15 10:46 | Emergency (ER) | payer MEDICARE ==
[~2021-10-15] VITALS: Ht 172.7 cm; Wt 102.1 kg
[~2021-10-15 10:46] MED LIST changes: +KEFLEX500 MG PO
[2021-10-15] MEDS ORDERED: PREDNISONE20 MG PO (13:57)
[2021-10-15] MEDS ORDERED: VENTOLIN HFA18 GM INH (13:57)
--- NOTE | 2021-10-16 07:15 | EKG ---
[facility] [address] [facility] [place], [place] [address] Signed Normal sinus rhythm Normal ECG No previous ECGs available Confirmed by VARSHA STONE MD ([id number]) on 10/16/2021 7:15:03 AM Electronically Signed By: VARSHA STONE MD 10/16/21 0715 PATIENT NAME: GWEN CAMPOS Electrocardiogram DATE OF : 47 PHYSICIAN: VARSHA STONE MD REPORT #: [id number] REPORT IS CONFIDENTIAL AND NOT TO BE RELEASED WITHOUT AUTHORIZATION
== END 2021-10-15 14:51 | disposition home or self-care (01) ==
LOC: ED 10:46
DX: J44.1 Chronic obstructive pulmonary disease with (acute) exacerbation (principal); I10 Essential (primary) hypertension; M10.9 Gout, unspecified; M19.90 Unspecified osteoarthritis, unspecified site; F17.200 Nicotine dependence, unspecified, uncomplicated; Z88.8 Allergy status to other drugs, medicaments and biological substances; Z88.5 Allergy status to narcotic agent; Z79.899 Other long term (current) drug therapy
CPT/HCPCS: 36415; 71045; 71260; 80053; 83735; 83880; 84484; 85025; 85379; 85610; 85730; 93005; 93010; 94640; 94664; 99285-25; A9270; J2930; J3010; J7030; Q9967